=== PATIENT | female | born 1990 | race Caucasian/White ===

== ENCOUNTER 2025-03-29 23:25 | Emergency (ER) | payer MEDICAID | END 2025-03-30 00:59 | disposition left against medical advice (07) | LOC: MW.ED 23:25 | DX: Z53.21 Procedure and treatment not carried out due to patient leaving prior to being seen by health care provider (principal) | CPT/HCPCS: 93005 ==

== ENCOUNTER 2025-04-03 04:18 | Emergency (ER) | payer MEDICAID ==
[2025-04-03 04:55] LABS: APPEARANCE,URINE SLT CLOUDY; GLUCOSE,URINE NEGATIVE (NEGATIVE); KETONES,URINE TRACE mg/dL (NEGATIVE); LEUKOCYTE ESTERASE,URINE NEGATIVE (NEGATIVE); NITRITE,URINE POSITIVE (NEGATIVE); OCCULT BLOOD,URINE NEGATIVE (NEGATIVE); PH,URINE 6.5 (5.0-8.0); PROTEIN,URINE NEGATIVE (NEGATIVE)
[2025-04-03 04:56] LABS: BILIRUBIN,URINE SMALL (NEGATIVE); COLOR,URINE DARK YELLOW
[2025-04-03 05:02] LABS: BACTERIA,URINE 3+ (NEGATIVE); EPITHELIAL CELLS,URINE FEW (NONE-FEW)
[2025-04-03 05:02] LABS: BASOPHILS ABSOLUTE AUTO 0.05 K/uL (0.00-0.20); BASOPHILS PERCENT AUTO 1.1 % (0.0-1.0); EOSINOPHILS ABSOLUTE AUTO 0.11 K/uL (0.00-0.45); EOSINOPHILS PERCENT AUTO 2.4 % (0.0-6.0); HEMATOCRIT 42.8 % (37.0-47.0); IMMATURE GRAN ABSOLUTE AUTO 0.01 K/uL (0.00-0.05); IMMATURE GRAN PERCENT AUTO 0.2 % (0.0-0.4); LYMPHOCYTES ABSOLUTE AUTO 2.34 K/uL (1.00-4.80); LYMPHOCYTES PERCENT AUTO 50.1 % (24.0-44.0); MEAN CORPUSCULAR HEMOGLOBIN 27.3 pg (28.0-32.0); MEAN CORPUSCULAR HGB CONC 32.7 g/dL (32.0-36.0); MEAN CORPUSCULAR VOLUME 83.6 fL (83.0-99.0); MONOCYTES ABSOLUTE AUTO 0.22 K/uL (0.00-0.80); MONOCYTES PERCENT AUTO 4.7 % (0.0-8.0); NEUTROPHILS ABSOLUTE AUTO 1.94 K/uL (1.80-7.70); NEUTROPHILS PERCENT AUTO 41.5 % (41.0-71.0); PLATELET COUNT,PLT 229 K/uL (150-400); RED BLOOD CELL COUNT 5.12 M/uL (4.10-5.30); WHITE BLOOD CELL COUNT,WBC 4.67 K/uL (3.9-11.3)
[2025-04-03 05:14] LABS: CALCIUM 9.1 mg/dL (8.5-10.1); CARBON DIOXIDE,CO2 31.3 mmol/L (21.0-32.0); CREATININE 1.1 mg/dL (0.6-1.0); EST CRCL DRUG DOSING (CG) 48.23 mL/min; MAGNESIUM 1.9 mg/dL (1.8-2.4); POTASSIUM,K 3.6 mmol/L (3.5-5.1)
== END 2025-04-03 05:28 | disposition home or self-care (01) ==
LOC: MW.ED 04:18
DX: R00.2 Palpitations (principal); N30.00 Acute cystitis without hematuria; Z88.0 Allergy status to penicillin; Z88.1 Allergy status to other antibiotic agents; Z79.899 Other long term (current) drug therapy
CPT/HCPCS: 36415; 80048; 81001; 83735; 84703; 85025; 87086; 87088; 87186; 93005; 93010; 99284; 99285

== ENCOUNTER 2025-05-10 22:31 | Emergency (ER) | payer SELFPAY | END 2025-05-10 23:38 | disposition home or self-care (01) | LOC: MW.ED 22:31 | DX: J02.9 Acute pharyngitis, unspecified (principal); K12.0 Recurrent oral aphthae; L53.9 Erythematous condition, unspecified; R50.9 Fever, unspecified; Z88.0 Allergy status to penicillin; Z88.1 Allergy status to other antibiotic agents | CPT/HCPCS: 87651; 99282; 99283 ==

== ENCOUNTER 2025-06-07 01:00 | Emergency (ER) | payer SELFPAY | END 2025-06-07 01:58 | disposition home or self-care (01) | LOC: MW.ED 01:00 | DX: M25.512 Pain in left shoulder (principal); Z88.0 Allergy status to penicillin; Z79.899 Other long term (current) drug therapy | CPT/HCPCS: 73030; 99283; A9270; 99282 ==

== ENCOUNTER 2025-06-28 07:59 | Emergency (ER) | payer SELFPAY ==
[2025-06-28 08:57] LABS: APPEARANCE,URINE CLEAR; GLUCOSE,URINE NEGATIVE (NEGATIVE); OCCULT BLOOD,URINE NEGATIVE (NEGATIVE)
== END 2025-06-28 09:48 | disposition home or self-care (01) ==
LOC: MW.ED 07:59
DX: B34.9 Viral infection, unspecified (principal); E86.0 Dehydration; Z88.0 Allergy status to penicillin; Z88.1 Allergy status to other antibiotic agents
CPT/HCPCS: 81003; 81025; 87428-QW; 87651; 99283

== ENCOUNTER 2025-07-13 11:38 | Emergency (ER) | payer SELFPAY | END 2025-07-13 12:26 | disposition home or self-care (01) | LOC: MW.ED 11:38 | DX: S19.9XXA Unspecified injury of neck, initial encounter (principal); Z88.0 Allergy status to penicillin; Z88.1 Allergy status to other antibiotic agents; X58.XXXA Exposure to other specified factors, initial encounter | CPT/HCPCS: 99283 ==